=== PATIENT | female | born 1995 | race Caucasian/White ===

== ENCOUNTER 2023-08-13 16:20 | Outpatient (RCR) | payer OTHER, SELFPAY | END 2023-11-11 23:59 | disposition home or self-care (01) | LOC: ANHLAB 16:20 | PROVIDERS: Visit Provider Obstetrics & Gynecology | DX: O20.0 Threatened abortion (principal); Z3A.00 Weeks of gestation of pregnancy not specified | CPT/HCPCS: 36415; 84702; 85461; 86850; 86900; 86901 ==

== ENCOUNTER 2023-08-14 09:55 | Outpatient (CLI) | payer OTHER, SELFPAY ==
--- NOTE | ~2023-08-14 | US_ITS ---
CORRECTED REPORT examination description [facility] [place] This report was recreated on 08/19/23. Original report was [facility] EXAMINATION: US OB <= 14 weeks fetus w TV DATE: 08/14/2023 11:09 INDICATION: Threatened . TECHNIQUE: Real-time transabdominal and transvaginal obstetric ultrasound. FINDINGS: No prior studies for comparison. The uterus measures 6.1 x 4.4 x 5.6 cm. There is an intrauterine gestational sac, with pole identified. The crown rump length measures 0.36 cm, which correlates with a estimated gestational age of 6 weeks 0 days. heart tones are identified measuring 161 bpm. Left ovary contains a 2.7 cm corpus luteal cyst. IMPRESSION: 1. SL IUP with an EGA of 6 weeks, 0 days (EDC by current ultrasound of 04/08/2024). 2: Left ovarian corpus luteal cyst measuring 2.7 cm. Reviewed, dictated and finalized at location B. RO[facility] MTDD IMPRESSION: 1. SL IUP with an EGA of 6 weeks, 0 days (EDC by current ultrasound of ). 2: Left ovarian corpus luteal cyst measuring 2.7 cm.
== END 2023-08-14 09:56 | disposition home or self-care (01) ==
PROVIDERS: Visit Provider Obstetrics & Gynecology
DX: O20.0 Threatened abortion (principal); Z3A.00 Weeks of gestation of pregnancy not specified
CPT/HCPCS: 76801; 76817

== ENCOUNTER 2024-03-09 19:26 | Emergency (ER) | payer OTHER, SELFPAY ==
[2024-03-09 19:32] VITALS: BP 146/82; PULSE 104; RESP 20; TEMP 36.7; O2SAT 100
--- NOTE | 2024-03-09 20:17 | ED.GENADULT ---
HPI - General Adult General Chief complaint: Skin/Abscess/Foreign Body Stated complaint: Tick on right foot Time Seen by Provider: 03/09/24 20:17 Source: patient, RN notes reviewed and old records reviewed Mode of arrival: ambulatory Limitations: no limitations History of Present Illness HPI narrative: 28-year-old female to [facility] for complaint of potential tick imbedded in right dorsal lateral foot. patient endorses being approximately 36 weeks gestation with uncomplicated . Patient states that she was out in their yard the past couple of days and patient noticed small dark brown spot with tenderness. Patient denies there being any prior with skin mole, injury, insect bite, lesion. Patient believes is a tick that needs removal. patient denies numbness, tingling, joint pain, fever, increased redness or swelling. Patient had not attempted to remove at home prior to arrival. Related Data Home Medications Medication Instructions Recorded Confirmed vits no.126-ferrous fum 1 tablet PO AC 03/10/24 03/10/24 28 mg iron-folic acid 800 mcg tablet (Classic ) Allergies Allergy/AdvReac Type Severity Reaction Status Date / Time Penicillins Allergy Severe Hives / Verified 03/10/24 12:17 Red Face apple Allergy Intermediate Hives / Verified 03/10/24 12:17 Red Face Review of Systems Review of Systems: All systems reviewed & are unremarkable except as noted in HPI and below Constitutional: Constitutional: Reports no additional constitutional complaints Eyes: Eyes: Reports no additional eye complaints ENT: Reports system reviewed and no additional complaints, except as documented Cardiovascular: Cardiovascular: Reports no additional cardiovascular complaints, Denies chest pain and Denies dyspnea Respiratory: Respiratory: Reports no additional respiratory complaints, Denies cough and Denies dyspnea Musculoskeletal: Musculoskeletal: Reports no additional musculoskeletal complaints Neurologic: Reports system reviewed and no additional complaints, except as documented Psychiatric: Psychiatric: Reports no additional psychiatric complaints PMFSH Family History Family History (Updated 03/10/24 @ 12:29 by Stephy Oconnor RN) Mother Glaucoma Diabetes mellitus Hypertension Social History Social History Substance use: never Spiritual care concerns: No Comments At the time of my signature, I reviewed and agree with the nursing past medical, surgical, social, and family history. There is no relevant family history pertinent to the patient complaint. Exam Const: General: cooperative, healthy appearing, comfortable, no acute distress, alert and well nourished Nutritional Appearance: well nourished Orientation/consciousness: patient oriented x3 Limitations: no limitations HENMT: Head: normal to inspection Ears: external ears normal Face/Nose/Sinus: Normal external nose present, Normal nares present, normal facial exam, No erythema and No edema Face and sinus: normal facial exam, no erythema and no edema Mouth: Yes Normal oral and palatal mucosa present Eyes: General: appearance normal, both eyes and all related structures Neck: Neck: normal visual inspection, full ROM and no meningeal signs Lymphatic: no lymphadenopathy noted and no lymphedema noted Chest: Chest palpation & inspection: normal inspection of the chest Resp: Effort & Inspection: normal respiratory effort and able to speak in complete sentences Auscultation: clear to auscultation bilaterally Cardio: Jugular venous distension: no JVD Rate: regular rate Rhythm: regular rhythm Back/Spine/Pelvis: Cervical Spine: cervical ROM normal Skin: General skin exam: normal color, no rashes or lesions noted and turgor normal Neuro: General: patient oriented x3, gait normal, moves all extremities and no meningeal signs Speech: normal speech Gait exam (Neuro): Normal gait present Extrem: General: rory
== END 2024-03-09 20:35 | disposition home or self-care (01) ==
PROVIDERS: Emergency Provider Nurse Practitioner Family
DX: O99.713 Diseases of the skin and subcutaneous tissue complicating pregnancy, third trimester (principal); Z3A.36 36 weeks gestation of pregnancy; L98.9 Disorder of the skin and subcutaneous tissue, unspecified
CPT/HCPCS: 99212; G0463

== ENCOUNTER 2024-04-06 08:02 | Inpatient (IN) | payer OTHER, SELFPAY ==
[2024-04-06] VITALS (121 sets, daily range): BP systolic 100–150; BP diastolic 43–89; PULSE 69–150; RESP 18; TEMP 36.5–37.4; O2SAT 97–100; BMI 34.8
--- NOTE | 2024-04-06 09:53 | WPDOBADMIT ---
Obstetrics - Admit Note Admission Note: record reviewed. No pertinent additions to the history and/or any subsequent changes in the physical findings that are not consistent with the expected course of the were found. Patient admitted for contractions starting at 2am. SVE /-1, AROM of small amount of clear fluid. Additions to the history and/or subsequent changes in the physical findings follow. None.
[2024-04-06] MEDS: LACTATED RINGERS 1,000 ML 125 ML IV CONT ×2 (09:55→10:55)
[2024-04-06 10:02] LABS: Basophils Absolute Auto 0.1 K/mm3 (0.0-0.1); Basophils Percent Auto 0.4 % (0.2-1.2); Eosinophils Absolute Auto 0.2 K/mm3 (0-0.3); Eosinophils Percent Auto 1.7 % (0-4.4); Hematocrit 36.9 % (37.0-47.0); Hemoglobin 12.7 g/dL (12.0-15.0); Immature Granulocyte Absolute 0.08 K/mm3 (0.00-0.031); Immature Granulocyte Percent A 0.6 % (0-0.5); Lymphocytes Absolute Auto 1.82 K/mm3 (0.9-3.2); Lymphocytes Percent Auto 13.7 % (18.3-44.2); Mean Corpuscular HGB Conc 34.4 g/dl (32-36); Mean Corpuscular Hemoglobin 31.8 pg (26-34); Mean Corpuscular Volume 92.3 fl (80-100); Mean Platelet Volume 9.9 fl (7.4-10.4); Monocytes Absolute Auto 0.8 K/mm3 (0.1-0.6); Monocytes Percent Auto 5.8 % (2.6-8.5); Neutrophils Absolute Auto 10.3 K/mm3 (1.3-6.7); Neutrophils Percent Auto 77.8 % (45.5-73.1); Platelet Count Result 251 k/mm3 (150-375); Red Cell Distribution Width 12.9 % (11.5-14.5); White Blood Count 13.3 K/mm3 (4.5-10.0)
--- NOTE | 2024-04-06 10:04 | WPDANESEPP ---
Anes - Eval Pre Procedure Procedure: Labor Epidural Date/Time: 04/06/24 10:04 Surgeon: Nura Preop Diagnosis: Labor Pain Pre Op Diagnosis: Contractions Patient Data Age: 28 Gender: F Height: Weight: Last Vital Signs Pulse 85 04/06/24 10:00 BP 127/82 04/06/24 10:00 Allergies Allergy/AdvReac Type Severity Reaction Status Date / Time Penicillins Allergy Severe Hives / Verified 03/10/24 12:17 Red Face apple Allergy Intermediate Hives / Verified 03/10/24 12:17 Red Face Home Medications Medication Instructions Recorded Confirmed Type vits no.126-ferrous fum 1 tablet PO AC 03/10/24 03/10/24 History 28 mg iron-folic acid 800 mcg tablet (Classic ) Laboratory Tests 04/06/24 09:56 WBC Pending RBC Pending Hgb Pending Hct Pending MCV Pending MCH Pending MCHC Pending RDW Pending Plt Count Pending MPV Pending Immature Gran % (Auto) Pending Neut % (Auto) Pending Lymph % (Auto) Pending [place]ne % (Auto) Pending Eos % (Auto) Pending Baso % (Auto) Pending Lymph # (Auto) Pending [place] # (Auto) Pending Eos # (Auto) Pending Baso # (Auto) Pending Abs Immat Gran (auto) Pending Absolute Neuts (auto) Pending Absolute Nucleated RBC Pending Nucleated RBC % Pending RPR Pending HIV 1&2 Ab/P24 Ag 4thGn Pending : gestational age (MATILDE 04/07/24, ) Patient hx anesthesia problems: none Family hx anesthesia problems: none Results Review: All pre-operative results and documents have been reviewed as part of the pre-operative evaluation. FOR[facility]LY [facility], [facility] Family History Family History Mother Glaucoma Diabetes mellitus Hypertension Social History Social History Substance use: never Spiritual care concerns: No Exam Day of Procedure 04/06/24 10:04 Patient weight: normal Heart: regular rate and rhythm Lungs: normal air movement Airway: Mallampati scale class II Neurological: alert and oriented
--- NOTE | 2024-04-06 10:14 | LDADM ---
This patient, Sandra Ngo, was admitted to Labor/Delivery/Recovery 106 on 04/06/24 at 08:02. Plans for labor, pain management and were discussed with patient. Patient/family oriented to hospital policies and general routines including ID bracelet, bed and alarms, visiting hours, pain management, procedures, bathroom and other care routines, personal items, smoking policy, room service/diet and guest tray routines, infant security routines, and visiting hours. Patient/Family are encouraged to report perceived risks to care and to ask questions if they do not understand what they are told or what they should do. See OBIX for further documentation.
[2024-04-06 10:54] LABS: HIV 1/2 Ab P24 Ag Result Negative (Negative)
[2024-04-06] MEDS: OXYTOCIN 30 UNITS/NS 500 ML 30 UNITS/500 ML BAG 999 UNITS IV CONT (16:22)
--- NOTE | 2024-04-06 16:34 | P.PCNOB_ITS ---
OB - Vaginal Delivery Note Procedure Delivery date: 04/06/24 Induction method: None Delivery augmentation: Rupture of Membranes (meconium) Delivery monitor: External FHT and External Uterine Route of delivery: Episiotomy description: None Laceration Description: Perineal - 1st Degree Delivery repair: vicryl Specimen: No Quantitative Blood Loss (ml): 100 Anesthesia type: Epidural Disposition: Floor Complications: No immediate complications Narrative: See H&P and notes for details on patient's admission and labor. She progressed to complete cervical dilation and at the appropriate time began pushing. With adequate expulsive efforts by the mother, the baby's head was delivered without difficulty. Nuchal cord was not present. The baby's left shoulder was anterior and delivered under the pubic symphysis without difficulty. The posterior shoulder and the rest of the baby delivered without difficulty. The umbilical cord was doubly clamped and cut after 60 seconds of delayed cord clamping. Care of the infant was then assumed by the nursing staff. [place] Baby Date of : 04/06/24 Weeks of gestation at delivery: 39 Infant gender: Female presentation: vertex position: Left Occiput Anterior Placenta delivery description: Expressed Cord Vessel Description: 3 Vessels and Delayed Cord Clamping
[2024-04-06] MEDS: OXYTOCIN 30 UNITS/NS 500 ML 30 UNITS/500 ML BAG 125 UNITS IV CONT (16:54)
--- NOTE | 2024-04-06 19:28 | OBPPTRN ---
Addendum entered by Shama Damico RN 04/06/24 19:29: pt got to floor at 1900 Original Note: Patient transferred to post room #282 via wheelchair. Support person present. Oriented to unit, room, information board, rooming in, admission packet and security measures. Patient verbalizes understanding.
[2024-04-07 04:25] VITALS: BP 118/86; PULSE 99; RESP 18; TEMP 37; O2SAT 100
[2024-04-07 05:46] LABS: Hematocrit 35.6 % (37.0-47.0); Hemoglobin 11.9 g/dL (12.0-15.0)
[2024-04-07 07:55] VITALS: BP 127/86; PULSE 81; RESP 16; TEMP 36.3; O2SAT 100
[2024-04-07 08:40] LABS: Rapid Plasma Reagin Non-Reactive (NonReactive)
--- NOTE | 2024-04-07 11:06 | WPDANLDPN2 ---
Anes-Prog Note L&D Date/Time: 04/07/24 11:06 Comfortable throughout: labor and delivery Neuraxial method: epidural Epidural/Spinal procedure site: clean & non-tender Neuro status: Neuro function grossly intact. Cardiovascular status: normal Respiratory status: normal Airway patency: baseline Mental status: baseline Post-Op hydration status: normal Vital Signs: Last Vital Signs Temp 36.3 C L 04/07/24 07:55 Pulse 81 04/07/24 07:55 Resp 16 04/07/24 07:55 BP 127/86 04/07/24 07:55 Pulse Ox 100 04/07/24 07:55 O2 Del Method Room Air 04/06/24 10:13 Pain score (VAS): 2/10 I/O: Intake & Output 04/06/24 04/07/24 04/07/24 23:59 07:59 15:59 Intake Total 500 Output Total 100 Balance 400 Post-procedural complaints: none Patient feedback: Patient satisfied with anesthetic care.
[2024-04-07 11:55] VITALS: BP 127/81; PULSE 98; RESP 16; TEMP 36.4; O2SAT 100
--- NOTE | 2024-04-07 18:03 | PM.OBPNVD ---
OB - PN: Subj Subjective Date/time seen: 04/07/24 18:03 Interval history: PPD#1 Doing well, pain minimal Emptying bladder No nausea or vomiting Formula feeding OB - PN: Obj Data Labs 04/07/24 04:31 Labs: Laboratory Results - last 24 hr 04/06/24 04/07/24 09:56 04:31 Hgb 11.9 L Hct 35.6 L RPR Non-reactive OB - PN A/P Assessment and Plan (1) (spontaneous vaginal delivery): Code(s): O80 - Encounter for full-term uncomplicated delivery Status: Acute Plan day: 1 Plan: routine care Time Spent With Patient Time: Total time spent is greater than 50% in coordination of care (as documented) at patient's floor/unit and/or counseling patient: Review of Systems Review of Systems: All systems reviewed & are unremarkable except as noted in HPI and below Exam Const: General: comfortable and no acute distress Orientation/consciousness: patient oriented x3 Resp: Effort & Inspection: normal respiratory effort
[2024-04-07 20:21] VITALS: BP 127/85; PULSE 93; RESP 18; TEMP 37.2; O2SAT 100
[2024-04-08 08:00] VITALS: BP 117/74; PULSE 97; RESP 16; TEMP 36.9; O2SAT 100
--- NOTE | 2024-04-08 09:15 | PM.OBPNVD ---
OB - PN: Subj Subjective Date/time seen: 04/08/24 09:15 Interval history: PPD#2 Doing well, pain minimal Formula feeding Ready for discharge home OB - PN: Obj Data Labs 04/07/24 04:31 OB - PN A/P Assessment and Plan (1) (spontaneous vaginal delivery): Code(s): O80 - Encounter for full-term uncomplicated delivery Status: Acute Plan day: 2 Plan: routine care and discharge home Time Spent With Patient Time: Total time spent is greater than 50% in coordination of care (as documented) at patient's floor/unit and/or counseling patient: Review of Systems Review of Systems: All systems reviewed & are unremarkable except as noted in HPI and below Exam Const: General: comfortable and no acute distress Resp: Effort & Inspection: normal respiratory effort
--- NOTE | 2024-04-08 09:20 | PM.OBDSVD ---
DS: Admitting Diagnosis Discharge Date 04/08/24 Admitting Diagnosis labor DS: Discharge Diagnosis Discharge Diagnosis (1) (spontaneous vaginal delivery): Code(s): O80 - Encounter for full-term uncomplicated delivery Status: Acute OB - DS: Summary OB Procedures : None OB Procedures Intrapartum: Spontaneous Vag Delivery OB Procedures: : None Peripartum Data Laceration Description: Perineal - 1st Degree Episiotomy description: None Time Spent with Patient Time attestation: Total time spent providing and/or coordinating discharge services: Discharge Plan Discharge Attending physician on discharge: Henry Lyman Discharging Clinician: Henry Lyman Patient Disposition: Home, Self-Care Activity: may shower, as tolerated and pelvic rest Diet: as tolerated Patient Instructions: Antibiotic Form Stand Alone Forms: General Discharge Information Follow-up/Referrals: Henry Lyman MD [Physician] - 4 Weeks Discharge Medications: New docusate sodium 100 mg Capsule 100 mg PO BID PRN (Reason: Constipation) Qty: 60 0RF ibuprofen 600 mg Tablet 600 mg PO Q6H PRN (Reason: Cramping) Qty: 30 0RF Continued Classic 28 mg iron- 800 mcg Tablet 1 tablet PO AC Date of admission: 04/06/24 08:02 Primary Care Provider: UNKNOWN,DOCTOR Admitting Provider: Henry Lyman Attending physician on admission: Henry Lyman Condition: Stable
[2024-04-09 11:38] VITALS: BP 125/74; PULSE 86; RESP 18; TEMP 36.7; O2SAT 100
== END 2024-04-08 12:45 | disposition home or self-care (01) | DRG 560 ==
LOC: ANHLDR 09:28 → ANHOB2 19:12
PROVIDERS: Admitting Provider Obstetrics & Gynecology; Visit Provider Obstetrics & Gynecology
DX: O77.0 Labor and delivery complicated by meconium in amniotic fluid (principal); O70.0 First degree perineal laceration during delivery; Z3A.39 39 weeks gestation of pregnancy; Z37.0 Single live birth
CPT/HCPCS: 36415; 85014; 85018; 85025; 86592; 86703; 86850; 86900; 86901; G0432; J2590; J2795; J7120